=== PATIENT | male | born 1970 | race African-American/Black ===

== ENCOUNTER → 2016-08-18 | Day surgery (SDC) | payer BC ==
[~2016-08-18] VITALS: Ht 177.8 cm; Wt 127.0 kg
[~2016-08-18] MED LIST: AMLO25TA PO; HYDR-3713; KETOROLAC 60 MG/2 ML VIAL (J1885) As Ordered ONE; LIDOCAINE 2% INJ 100 MG/5 ML SDV (FOR ANES.) As Ordered ONE; LR 1,000 ML IV ONE; LR 1,000 ML IV SCH; MIDAZOLAM INJ 2 MG/2 ML VIAL (J2250) As Ordered ONE; MULT1TAB10 PO; ONDANSETRON 4MG/2ML VIAL (J2405) As Ordered ONE; PROPOFOL 200 MG/20 ML VIAL As Ordered ONE; fentaNYL 100 MCG/2 ML INJECTION (J3010) As Ordered ONE
[2016-08-18] MEDS: BUPIVACAINE/EPIN 0.25% 30 ML VIAL As Ordered ONE ×2 (09:12→09:15)
[2016-08-18 10:25] VITALS: BP 127/68
--- NOTE | 2016-08-23 18:43 | RO ---
DATE OF PROCEDURE: 08/18/2016 PREOPERATIVE DIAGNOSIS: Lipoma upper back. POSTOPERATIVE DIAGNOSIS: Multilobulated lipoma upper back 10 x 3 cm. OPERATIVE PROCEDURE: Excision of multilobulated lipoma upper back. SURGEON: Boubacar Garcia MD PRESS TENDER STAR SIGNAL: ANESTHESIA: Local lidocaine mixed with epinephrine and sedation. ESTIMATED BLOOD LOSS: Minimal. BRIEF PROCEDURE SUMMARY: The patient was brought to the operating room and was given IV sedation; was prepped and draped in the usual sterile fashion. Local lidocaine mixed with epinephrine and Marcaine was infiltrated in the skin, subcutaneous tissue surrounding the lipoma. A transverse incision was made over the top of the lipoma itself and the lipoma was removed after using a combination of blunt and sharp dissection down to the level of the lipoma. It was down through Jose Manuel's layer and eventually I was able to mobilize this off surrounding tissue. However, this was a significantly multilobulated lipoma and eventually I was able to get around all edges of it, first opening up some of the septations with electrocautery and once these septations were opened, then I was able to deliver the small lobulated areas. Once this was completely removed, it was about 10 cm long, but it was very narrow. It did not work its way through the muscle i.e. not an intramuscular lipoma. Good hemostasis was achieved with electrocautery. The dermis was brought together with #3-0 Vicryl after the deep subcutaneous tissue was brought together with #2-0 Vicryl and a running subcuticular #4-0 Vicryl was used to approximate the skin. Steri-Strips and dry sterile dressing was applied. The patient was awakened from her his anesthesia sedation and brought to the recovery room awake, alert, hemodynamically stable. Sponge and needle counts correct times two.
== END | disposition home or self-care (01) ==
LOC: M SDC 06:28
PROVIDERS: ATTEND Surgery
DX: D17.1 Benign lipomatous neoplasm of skin and subcutaneous tissue of trunk (principal); I10 Essential (primary) hypertension; Z79.899 Other long term (current) drug therapy; Z87.891 Personal history of nicotine dependence
CPT/HCPCS: 11406; 88304; J1885; J2250; J2405; J3010